=== PATIENT | male | born 1995 | race Caucasian/White ===

== ENCOUNTER 2017-07-31 20:40 | Emergency (ER) | payer BC, OTHER ==
[2017-07-31 20:51] VITALS: BP 121/76; PULSE 70; RESP 18; TEMP 98.8; O2SAT 100
--- NOTE | 2017-07-31 21:04 | PD ---
HPI Chief Complaint: Injury Time Seen by Provider: 20:55 Travel History International Travel<30 days: No Contact w/Intl Traveler<30days: No Traveled to known affect area: No History of Present Illness HPI 22-year-old male presents for evaluation of left elbow injury. Prior to arrival the patient was playing soccer when he was "slide tackled" by the goalie and he fell on his outstretched left hand. He has pain and deformity to the left elbow, throbbing, constant, worse with any sort of movement. Denies any numbness or tingling in the left hand. Denies any other injuries and he has no other complaints at this time. ON LICENSE OF [facility] Past Medical History Medical History: Denies Significant Hx Past Surgical History Surgical History: No Previous Surgery Social History Alcohol Use: Yes Tobacco Use: No Substance Use: No Allergies-Medications (Allergen,Severity, Reaction): Coded Allergies: No Known Drug Allergies (Verified Allergy, Unknown, 07/31/17) Reported Meds & Prescriptions Reported Meds & Active Scripts Active No Active Prescriptions or Reported Medications Review of Systems Musculoskeletal: Positive: Limited ROM, Pain Skin: Positive Other (Denies any open wounds) Neurologic: No: Paresthesia Physical Exam Narrative GENERAL: Well-nourished male in no acute distress SKIN: Warm and dry. HEAD: Atraumatic. Normocephalic. CARDIOVASCULAR: Regular rate and rhythm. No murmur appreciated. RESPIRATORY: No accessory muscle use. Clear to auscultation. Breath sounds equal bilaterally. MUSCULOSKELETAL: Obvious deformity to the left elbow which is currently in a splint. Limited range of motion secondary to the deformity. Capillary refill less than 2 seconds in all digits of left hand. 2+ radial pulse. Distal sensation is preserved in the median radial and ulnar nerve distributions. NEUROLOGICAL: Awake and alert. No obvious cranial nerve deficits. Motor grossly within normal limits. Normal speech. Data Data Last Documented VS Vital Signs Date Time Temp Pulse Resp B/P (MAP) Pulse Ox O2 Delivery O2 Flow Rate FiO2 07/31/17 20:51 98.8 70 18 121/76 (91) 100 Orders Orders Elbow, Limited (Ap&Lat) (07/31/17 ) Morphine Inj (Morphine Inj) (07/31/17 21:15) Ondansetron Inj (Zofran Inj) (07/31/17 21:15) Iv Access Insert/Monitor (07/31/17 21:01) Midazolam Inj (Versed Inj) (07/31/17 21:15) Midazolam Inj (Versed Inj) (07/31/17 21:30) Midazolam Inj (Versed Inj) (07/31/17 21:34) Elbow, Limited (Ap&Lat) (07/31/17 ) Splint Or Brace Apply/Monitor (07/31/17 21:53) Ed Discharge Order (07/31/17 22:49) [facility] Medical Decision Making Medical Screen Exam Complete: Yes Emergency Medical Condition: Yes Medical Record Reviewed: Yes Differential Diagnosis Left elbow dislocation, fracture, sprain Narrative Course X-ray imaging of the left elbow be obtained. IV will be established, he will be given morphine and Zofran. X-ray confirms left elbow dislocation. After consent was obtained, closed reduction was performed. Posterior long-arm splint was applied. Postreduction x-ray confirms reduction. Procedures Procedure Narrative Closed reduction left elbow dislocation: After sedation was achieved, closed reduction was performed using traction and countertraction. Postreduction distal pulses, sensation, capillary refill intact. Patient tolerated procedure well. Diagnosis Primary Impression: Dislocation of left elbow Referrals: Dale Artis Jr., MD Additional Instructions: Do not remove the splint. Follow-up with an orthopedist such as Dr. Artis in the next 1-2 weeks. Return for any emergent medical conditions. Med/Other Pt SpecificInfo: Orthopedic Instructions Scripts No Active Prescriptions or Reported Meds Disposition: 01 DISCHARGE HOME Condition: Stable Reinaldo Salazar Jul 31, 2017 21:04
--- NOTE | 2017-07-31 21:13 | PD ---
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 Data Data Last Documented VS Vital Signs Date Time Temp Pulse Resp B/P (MAP) Pulse Ox O2 Delivery O2 Flow Rate FiO2 07/31/17 20:51 98.8 70 18 121/76 (91) 100 Orders Orders Elbow, Limited (Ap&Lat) (07/31/17 ) Morphine Inj (Morphine Inj) (07/31/17 21:15) Ondansetron Inj (Zofran Inj) (07/31/17 21:15) Iv Access Insert/Monitor (07/31/17 21:01) Midazolam Inj (Versed Inj) (07/31/17 21:15) Midazolam Inj (Versed Inj) (07/31/17 21:30) Midazolam Inj (Versed Inj) (07/31/17 21:34) Elbow, Limited (Ap&Lat) (07/31/17 ) Splint Or Brace Apply/Monitor (07/31/17 21:53) MDM Supervised Visit with ANIBAL: Yes Procedures Procedure Narrative Conscious sedation procedure: Patient was put on pvc monitor and pulse oximetry monitor. IV established. O2 2 L nasal cannula. Patient was given morphine 2 mg IV and Versed 5 mg IV. Patient was well sedated. Reduction procedure done. Patient recovered uneventfully. Reduction of left elbow dislocation procedure: Conscious sedation procedure started. Patient was given morphine and Versed IV. Reduction of left elbow dislocation was done with traction and gentle pressure left upper arm. Reduction of the left elbow dislocation obtained. Posterior long-arm splint applied. Scripts No Active Prescriptions or Reported Meds Froilan Elizalde MD Jul 31, 2017 21:13
[2017-07-31] MEDS ORDERED: ONDANSETRON HCL 4 MG/2 ML VIAL IV PUSH ONE (21:15)
[2017-07-31] MEDS ORDERED: MIDAZOLAM HCL 5 MG/5 ML VIAL IV PUSH ONE (21:15)
[2017-07-31] MEDS ORDERED: MORPHINE SULFATE 4 MG/ML INJ IV PUSH ONE (21:15)
[2017-07-31] MEDS ORDERED: MIDAZOLAM HCL 5 MG/ML VIAL (1 ML) ONE ×2 (21:30→21:34)
--- NOTE | 2017-07-31 22:06 | RADRPT ---
EXAM DATE/TIME: 07/31/2017 21:08 [facility] COMPARISON: No previous studies available for comparison. INDICATIONS : Left elbow pain and deformity. Patient fell playing soccer tonight. MEDICAL HISTORY : None. SURGICAL HISTORY : None. ENCOUNTER: Initial ACUITY: 1 day PAIN SCORE: 10/10 LOCATION: Left elbow. FINDINGS: There is an elbow dislocation with the radius and ulna being displaced posteriorly. There is a minima l area of bony density seen just anterior to the ulna. This likely represents a small fracture fragme nt. There is an elbow effusion. CONCLUSION: Elbow dislocation. Joaquín Mane MD on July 31, 2017 at 22:03 Board Certified Radiologist. This report was verified electronically.
--- NOTE | 2017-07-31 22:43 | RADRPT ---
EXAM DATE/TIME: 07/31/2017 22:09 [facility] COMPARISON: ELBOW LEFT LIMITED (AP & LAT), July 31, 2017, 21:08. INDICATIONS : Post reduction. MEDICAL HISTORY : None. SURGICAL HISTORY : None. ENCOUNTER: Subsequent ACUITY: 1 day PAIN SCORE: 0/10 LOCATION: Left elbow. FINDINGS: There has been successful reduction of the previous seen elbow dislocation. CONCLUSION: Successful reduction of the elbow dislocation. Joaquín Mane MD on July 31, 2017 at 22:41 Board Certified Radiologist. This report was verified electronically.
[2017-07-31] MEDS ORDERED: ACETAMINOPHEN/HYDROcodone 325 MG/5 MG TAB PO ONE (23:45)
== END 2017-07-31 23:53 | disposition home or self-care (01) ==
LOC: NEPD 20:40
DX: S53.105A Unspecified dislocation of left ulnohumeral joint, initial encounter (principal); W18.09XA Striking against other object with subsequent fall, initial encounter; Y93.66 Activity, soccer
CPT/HCPCS: 24600; 73070; 96374; 96375; 99285; J2250; J2270; J2405